=== PATIENT | female | born 1940 | race Caucasian/White ===

== ENCOUNTER 2018-11-16 10:29 | Outpatient (RCR) | payer MEDICARE, OTHER ==
[2018-11-08 12:57] VITALS: BP 139/93
--- NOTE | 2018-11-09 07:36 | NUR ---
11/08/18 1022 Patient in for nursing assessment. Vitals WNL and charted. Pt presents clean and neat, alert and oriented x 4. Pt is in a pleasant mood stating that she wants to help herself. Pt states she is sober for about a month. Pt recently in rehab for alcoholism under a marchman act. Pt denies any suicidal thoughts at present time. pt signed some admission paperwork. pt is aware at this point that she will be attending 5x/week. Pt gave consent signatures and stated that she is mad at her friend Ingrid because she feels he is not making things easy for her(prior to her rehab, in taking her keys away and speaking with son in concern for pts well being) Pt stated that Pat was the one that found her passed out and that is how she became a pt in rehab. Will continue to follow up with pt.
--- NOTE | 2018-11-13 10:50 | NUR ---
11/10/18 Patient in today for new admission. Pt presents clean and neat. Pt is alert and oriented x 4. Pt mood is pleasant. Pt states to the doctor that she was zuri acted and now she is here. Pt displays with poor insight into her alcoholism. Pt denies suicidal thoughts. She states she doesn't crave drinking, that she only drinks when she is depressed. pt states she has been sober since going inpatient about 30 days ago. Pt will continue with IOP 5x/week at this point. Pt will follow up in one month.
--- NOTE | 2018-11-15 13:52 | NUR ---
11/14/18 1151 Call from patients son to talk about testing for dementia for pt. Pt son is temporary guardian and is unsure of what he can or cannot do to help the pt. Pt transferred to director so that his questions can be answered further.
[~2018-11-16] VITALS: Ht 157.5 cm; Wt 50.3 kg
[~2018-11-16 10:29] MED LIST: B1 HIGH POTENC100 MG PO; BAYER ASPIRIN PO; FLUOXETINE10 MG PO; HYDROXYZ PAM25 MG PO; HYDROXYZINE PAM25 MG PO; IRON SLOW RELEASE PO; MIRTAZAPINE15 M1 PO; TRAMADOL HCL PO; XARELTO20 MG PO; [UNRECOGNIZED DRUG - CODE] PO; no known home meds
== END 2018-11-16 23:59 | disposition home or self-care (01) ==
LOC: PATHWAYS 10:29
PROVIDERS: ATTEND Specialist
DX: F33.8 Other recurrent depressive disorders (principal); F10.20 Alcohol dependence, uncomplicated; F10.10 Alcohol abuse, uncomplicated; F43.21 Adjustment disorder with depressed mood; Z63.8 Other specified problems related to primary support group